=== PATIENT | female | born 1950 | race Caucasian/White ===

== ENCOUNTER 2023-09-28 07:23 | Outpatient (REF) | payer OTHER, SELFPAY ==
--- NOTE | ~2023-09-28 | XR_ITS ---
EXAMINATION: XR BOTH KNEES AP STANDING XR LEFT KNEE, 2 VIEWS XR RIGHT KNEE, 2 VIEWS CLINICAL INFORMATION: Bilateral knee pain. COMPARISON: None. TECHNIQUE: Standing AP view of both knees and lateral and sunrise views of each knee. FINDINGS: LEFT KNEE: Mild tricompartmental joint space narrowing with small marginal osteophytes. Articular cortical irregularity is evident at the patella and lateral compartments. Osseous sclerosis is present in the lateral compartment with subtle cortical remodeling. No fracture or malalignment. Small joint effusion. Bones are osteopenic. RIGHT KNEE: Tricompartmental joint space narrowing, most pronounced in the lateral compartment, associated with articular sclerosis and cortical irregularity. Tricompartmental marginal osteophytes. Moderate-size joint effusions. Bones are osteopenic. No fractures. XR/XR knee standing BI IMPRESSION: Moderate lateral compartment osteoarthritis bilaterally with more [id number] patellofemoral and mild medial compartment osteoarthritis. Bilateral joint effusions, right side greater than left.
--- NOTE | ~2023-09-28 | XR_ITS ---
EXAMINATION: XR BOTH KNEES AP STANDING XR LEFT KNEE, 2 VIEWS XR RIGHT KNEE, 2 VIEWS CLINICAL INFORMATION: Bilateral knee pain. COMPARISON: None. TECHNIQUE: Standing AP view of both knees and lateral and sunrise views of each knee. FINDINGS: LEFT KNEE: Mild tricompartmental joint space narrowing with small marginal osteophytes. Articular cortical irregularity is evident at the patella and lateral compartments. Osseous sclerosis is present in the lateral compartment with subtle cortical remodeling. No fracture or malalignment. Small joint effusion. Bones are osteopenic. RIGHT KNEE: Tricompartmental joint space narrowing, most pronounced in the lateral compartment, associated with articular sclerosis and cortical irregularity. Tricompartmental marginal osteophytes. Moderate-size joint effusions. Bones are osteopenic. No fractures. XR/XR knee RT 2V IMPRESSION: Moderate lateral compartment osteoarthritis bilaterally with more [id number] patellofemoral and mild medial compartment osteoarthritis. Bilateral joint effusions, right side greater than left.
--- NOTE | ~2023-09-28 | XR_ITS ---
EXAMINATION: XR BOTH KNEES AP STANDING XR LEFT KNEE, 2 VIEWS XR RIGHT KNEE, 2 VIEWS CLINICAL INFORMATION: Bilateral knee pain. COMPARISON: None. TECHNIQUE: Standing AP view of both knees and lateral and sunrise views of each knee. FINDINGS: LEFT KNEE: Mild tricompartmental joint space narrowing with small marginal osteophytes. Articular cortical irregularity is evident at the patella and lateral compartments. Osseous sclerosis is present in the lateral compartment with subtle cortical remodeling. No fracture or malalignment. Small joint effusion. Bones are osteopenic. RIGHT KNEE: Tricompartmental joint space narrowing, most pronounced in the lateral compartment, associated with articular sclerosis and cortical irregularity. Tricompartmental marginal osteophytes. Moderate-size joint effusions. Bones are osteopenic. No fractures. XR/XR knee LT 2V IMPRESSION: Moderate lateral compartment osteoarthritis bilaterally with more [id number] patellofemoral and mild medial compartment osteoarthritis. Bilateral joint effusions, right side greater than left.
== END 2023-09-28 07:24 | disposition home or self-care (01) ==
LOC: HO.HOSX 07:23
PROVIDERS: Visit Provider Orthopaedic Surgery
DX: M17.0 Bilateral primary osteoarthritis of knee (principal); M21.061 Valgus deformity, not elsewhere classified, right knee; M21.062 Valgus deformity, not elsewhere classified, left knee
CPT/HCPCS: 73560; 73565; 99202

== ENCOUNTER 2023-09-28 10:46 | Outpatient (AMB) | payer OTHER, SELFPAY ==
--- NOTE | 2023-09-28 10:48 | A.OFFVIS_ITS ---
Intake Vital Signs 09/28/23 10:59 Height 5 ft 4 in Weight 150 lb BMI 25.7 Intake Visit Reasons: New Pt - Bilateral Knee OA Intake Note: Lesley is a 73 year old female who presents today as a new patient with complaints of bilateral knee OA. She has previously been seen with physiatry who has administered injections, which has become less effective over time. She was referred to [facility] for Gel injections she was scheduled for Euflexxa but all of her appointments were canceled due to the shortage. Allergies adhesive Adverse Reaction (Verified 09/28/23 11:02) Rash codeine Adverse Reaction (Verified 09/28/23 11:02) Rash HPI New Pt - Bilateral Knee OA HPI Details Lesley is a 73 year old woman who presents with complaints of bilateral knee OA pain. She complains of pain with daily activity. She has a hx of injections at an outside clinic, which she says used to be helpful but they have been less effective. She was referred to [facility] for Euflexxa injections but this did not happen. [facility] Surgical History (Updated 09/28/23 @ 11:04 by Katelyn Dailey CMA) S/P removal of right ovary Hx of removal of cyst Review of Systems Const All systems reviewed & are unremarkable except as noted in HPI and below Physical Exam Vital Signs: BMI result Body Mass Index 25.7 Const General: no acute distress, alert and awake Orientation/consciousness: patient oriented x3 HEENT Head: Yes normocephalic and Yes atraumatic Eyes EOM: EOMs intact bilaterally Resp Effort & Inspection: normal respiratory effort and able to speak in complete sentences Cardio Jugular venous distension: no JVD Skin General skin exam: turgor normal Rashes: no rashes Neuro General: patient oriented x3 Extrem Other: Valugs bilateral knees TTP lateral compartment right knee 1+ valgus instability left Psych Appearance: grossly normal Affect: normal affect Attitude: cooperative Results Reviewed Results Reviewed: I personally reviewed relevant radiographs. lateral compartment OA bilaterally Assessment & Plan Assessment & Plan (1) Arthritis of both knees: Code(s): M17.0 - Bilateral primary osteoarthritis of knee Plan: Steroid injections not helpfu. Viscosupplementation Lateral unloading brace left (2) Acquired genu valgum of both knees: Code(s): M21.061 - Valgus deformity, not elsewhere classified, right knee; M21.062 - Valgus deformity, not elsewhere classified, left knee Plan Prepared for Neal Rios MD by Jesus Alberto Saavedra, emergency medical tech, on 09/28/23 at 10:53 AM, EST. Orders: Orders XR knee RT 2V 09/28/23 M25.569 - Pain in unspecified knee XR knee LT 2V 09/28/23 M25.569 - Pain in unspecified knee XR knee standing BI 09/28/23 M25.569 - Pain in unspecified knee Coding Level of Care Code New Pt Level 4 (70538) Diagnoses Arthritis of both knees M17.0 Acquired genu valgum of both knees M21.061; M21.062
[2023-09-28 10:59] VITALS: BMI 25.7
== END 2023-09-28 11:46 | disposition home or self-care (01) ==
PROVIDERS: Visit Provider Orthopaedic Surgery
DX: M17.0 Bilateral primary osteoarthritis of knee (principal); M21.061 Valgus deformity, not elsewhere classified, right knee; M21.062 Valgus deformity, not elsewhere classified, left knee
CPT/HCPCS: 99203

== ENCOUNTER 2023-10-19 09:19 | Outpatient (AMB) | payer OTHER, SELFPAY ==
--- NOTE | 2023-10-19 08:30 | A.OFFVIS_ITS ---
Intake Vital Signs 10/19/23 09:30 Height 5 ft 4 in Weight 150 lb BMI 25.7 Intake Visit Reasons: Bilateral Knee Durolane Injections Intake Note: Lesley 73 yr old female presents today for Bilateral knee Durolane injections#1 Allergies adhesive Adverse Reaction (Verified 10/19/23 09:32) Rash codeine Adverse Reaction (Verified 10/19/23 09:32) Rash HPI Bilateral Knee Durolane Injections HPI Details Lesley is a 73 year old woman with bilateral knee OA, who presents for bilateral Durolane injections. She denies any changes in her symptoms or medical history. [facility] Surgical History S/P removal of right ovary Hx of removal of cyst Social History (Updated 10/19/23 @ 09:33 by Mary Walton MA) Household Members: None Housing: Condominium Alcohol intake: current Alcohol intake frequency: a few times a week Patient Tobacco Use Status: Former Tobacco user Review of Systems Const All systems reviewed & are unremarkable except as noted in HPI and below Physical Exam Vital Signs: BMI result Body Mass Index 25.7 Const General: no acute distress, alert and awake Orientation/consciousness: patient oriented x3 HEENT Head: Yes normocephalic and Yes atraumatic Eyes EOM: EOMs intact bilaterally Resp Effort & Inspection: normal respiratory effort and able to speak in complete sentences Cardio Jugular venous distension: no JVD Skin General skin exam: turgor normal Rashes: no rashes Neuro General: patient oriented x3 Extrem Other: Valgus alignment Skin C/D/I Psych Appearance: grossly normal Affect: normal affect Attitude: cooperative Office Procedures Joint Injection/Drain Joint Injection/Drain Details: Injected Durolane. Site was prepped using aseptic technique. Patient tolerated the procedure well. Primary Site: right knee Secondary Site: left knee Coding - Large joint - Glenohumeral/Tronchanteric Bursa/Intraarticular Procedure code (CPT) selection complete Assessment & Plan Assessment & Plan (1) Acquired genu valgum of both knees: Code(s): M21.061 - Valgus deformity, not elsewhere classified, right knee; M21.062 - Valgus deformity, not elsewhere classified, left knee Plan: Durolane bilateral knees. f/u 3 mo. (2) Arthritis of both knees: Code(s): M17.0 - Bilateral primary osteoarthritis of knee Plan Prepared for Neal Rios MD by Jesus Alberto Saavedra, medical office receptionist assistant, on 10/19/23 at 9:05 AM, EST. Coding Level of Care Code Est Pt Level 2 (64783) Diagnoses Acquired genu valgum of both knees M21.061; M21.062 Arthritis of both knees M17.0 CPT Codes Coding - 87956 Large joint: 60455 - Large joint ([id number]) Coding - Joint 7: 89740 - Glenohumeral/Tronchanteric Bursa/Intraarticular ([id number])
[2023-10-19 09:30] VITALS: BMI 25.7
== END 2023-10-19 09:47 | disposition home or self-care (01) ==
PROVIDERS: Visit Provider Orthopaedic Surgery
DX: M21.061 Valgus deformity, not elsewhere classified, right knee (principal); M21.062 Valgus deformity, not elsewhere classified, left knee; M17.0 Bilateral primary osteoarthritis of knee
CPT/HCPCS: 20610

== ENCOUNTER → 2023-10-19 09:19 | Outpatient (BNVA) | payer OTHER, SELFPAY | PROVIDERS: Visit Provider Orthopaedic Surgery | DX: M17.0 Bilateral primary osteoarthritis of knee (principal); M21.061 Valgus deformity, not elsewhere classified, right knee; M21.062 Valgus deformity, not elsewhere classified, left knee | CPT/HCPCS: 20610; J7318 ==

== ENCOUNTER 2023-11-16 08:30 | Outpatient (AMB) | payer OTHER, SELFPAY ==
[2023-11-16 08:33] VITALS: BMI 25.7
--- NOTE | 2023-11-16 08:33 | A.OFFVIS_ITS ---
Intake Vital Signs 11/16/23 08:33 Height 5 ft 4 in Weight 150 lb BMI 25.7 Intake Visit Reasons: OV - Bilateral Knee OA - Increased Pain Intake Note: Lesley is a 73 year old female who presents today for a follow up of her bilateral knee OA, She received bilateral Durolane injections on 10/19/23. She presents today as she is having continued worsening pain, the injection has not helped, if anything it has increased her pain and swelling. Allergies adhesive Adverse Reaction (Verified 11/16/23 08:38) Rash codeine Adverse Reaction (Verified 11/16/23 08:38) Rash HPI OV - Bilateral Knee OA - Increased Pain HPI0 Details s/p gel injections with no relief. She describes severe pain. She states the gel made them worse. She denies redness or fever or chills. She does NOT want a knee replacement. She doesn't understand how or why the gel didn't make her better. [facility] Surgical History S/P removal of right ovary Hx of removal of cyst Social History Household Members: None Housing: Condominium Alcohol intake: current Alcohol intake frequency: a few times a week Patient Tobacco Use Status: Former Tobacco user Physical Exam Vital Signs: BMI result Body Mass Index 25.7 Const General: cooperative, healthy appearing, no acute distress, well developed and alert HEENT Head: Yes normal to inspection, Yes normocephalic and Yes atraumatic Mouth: moist mucous membranes Eyes General: appearance normal, both eyes and all related structures EOM: EOMs intact bilaterally Chest Other: no audible wheezing. Resp Other: No audible wheezing Effort & Inspection: normal respiratory effort Back/Spine/Pelvis Cervical Spine: normal cervical lordosis Skin General skin exam: no rashes or lesions noted Neuro General: no focal motor deficits Extrem Other: There is mild effusion bilaterally Valgus alignment bialerally right > left There is 1+ valgus instability on the right and lateral compartment ttp Psych Appearance: grossly normal and well kempt Mental Status: mental status grossly normal Speech and movement: Normal speech and movement present Affect: normal affect Attitude: cooperative Assessment & Plan Assessment & Plan (1) Acquired genu valgum of both knees: Code(s): M21.061 - Valgus deformity, not elsewhere classified, right knee; M21.062 - Valgus deformity, not elsewhere classified, left knee Plan: This is a 73 yo F with right knee, valgus pattern, OA. I explained that steroid and gel have variable responses and incomplete symptom resolution is common. I offered PRP injections, bracing, surgery and finally we agreed on a referral to pain management. She should continue NSAIDs and a referral was made to pain management. (2) Arthritis of both knees: Code(s): M17.0 - Bilateral primary osteoarthritis of knee Plan: This is a 73 yo F with right knee, valgus pattern, OA. I explained that steroid and gel have variable responses and incomplete symptom resolution is common. I offered PRP injections, bracing, surgery and finally we agreed on a referral to pain management. She should continue NSAIDs and a referral was made to pain management. Orders: Referrals Pain Management Referral M17.0 - Bilateral primary osteoarthritis of knee, M21.061 - Valgus deformity, not elsewhere classified, right knee, M21.062 - Valgus deformity, not elsewhere classified, left knee Coding Level of Care Code Est Pt Level 4 (30396) Diagnoses Acquired genu valgum of both knees M21.061; M21.062 Arthritis of both knees M17.0
== END 2023-11-16 09:13 | disposition home or self-care (01) ==
PROVIDERS: Visit Provider Orthopaedic Surgery
DX: M21.061 Valgus deformity, not elsewhere classified, right knee (principal); M21.062 Valgus deformity, not elsewhere classified, left knee; M17.0 Bilateral primary osteoarthritis of knee
CPT/HCPCS: 99214

== ENCOUNTER → 2023-11-16 08:30 | Outpatient (BNVA) | payer OTHER, SELFPAY | PROVIDERS: Visit Provider Orthopaedic Surgery | DX: M21.061 Valgus deformity, not elsewhere classified, right knee (principal); M21.062 Valgus deformity, not elsewhere classified, left knee; M17.0 Bilateral primary osteoarthritis of knee | CPT/HCPCS: 99212 ==

== ENCOUNTER 2023-12-14 09:25 | Outpatient (AMB) | payer OTHER, SELFPAY ==
--- NOTE | 2023-12-14 09:48 | MHC.OFFVIS ---
Vital Signs 12/14/23 09:49 Height 5 ft 4 in Weight 159 lb BMI 27.3 BP 102/59 L Blood Pressure Location Lt brachial Position Sitting Respiration 14 Pulse 70 Pulse Source Pulse Oximeter Pulse Oximetry (%) 100 Oxygen Delivery Method Room Air Intake Visit Reasons: deborah knee pain Allergies adhesive Adverse Reaction (Verified 12/14/23 09:50) Rash codeine Adverse Reaction (Verified 12/14/23 09:50) Rash Medication List - Last Reconciled 12/14/23 by Swapna Ortiz LPN carisoprodol (Soma) 250 mg PO BEDTIME indomethacin 25 mg PO BID HPI HPI deborah knee pain: Details: 73-year-old female who presents today to the office for an evaluation of bilateral knee pain. She reports bilateral knee pain for the past three years. She has a history of knee OA. Her pain is rated as 8-9/10 in intensity in bilateral knees. Her left knee is worse than the right side. Evenings tend to be a little bit better when they are rated at 3/10 in intensity. Weather changes make the pain worse. She received bilateral Durolane injections on 10/19/23 with no relief but overall worsened her pain. She has been following up with physiatry every three months for a cortisone injection in her knees. Her last injection was on 12/02/2023. She is scheduled for her next cortisone injection on 03/01/2024. She was scheduled for Euflexxa, but all of her appointments were canceled due to the shortage. She takes indomethacin 50 milligrams three times a day and Soma 350 milligrams twice daily. She has not tried gabapentin or pregabalin. [facility] Surgical History S/P removal of right ovary Hx of removal of cyst Social History Household Members: None Housing: Condominium Alcohol intake: current Alcohol intake frequency: a few times a week Patient Tobacco Use Status: Former Tobacco user Review of Systems Const All systems reviewed & are unremarkable except as noted in HPI and below Physical Exam Vital Signs: Last Vital Signs Pulse 70 12/14/23 09:49 Resp 14 12/14/23 09:49 BP 102/59 L 12/14/23 09:49 Pulse Ox 100 12/14/23 09:49 Oxygen Delivery Method Room Air 12/14/23 09:49 BMI result Body Mass Index 27.3 General: Appears afebrile. Alert and oriented. Mood and affect appropriate. Follows and participates in conversation appropriately. Respiratory effort is unlabored. Able to transition from sit to stand unassisted. Ambulates with bilaterally normal heel strike and toe off. Results Reviewed Results Reviewed: 09/28/23: XR BOTH KNEES AP STANDING. XR LEFT KNEE, 2 VIEWS. XR RIGHT KNEE, 2 VIEWS FINDINGS: LEFT KNEE: Mild tricompartmental joint space narrowing with small marginal osteophytes. Articular cortical irregularity is evident at the patella and lateral compartments. Osseous sclerosis is present in the lateral compartment with subtle cortical remodeling. No fracture or malalignment. Small joint effusion. Bones are osteopenic. RIGHT KNEE: Tricompartmental joint space narrowing, most pronounced in the lateral compartment, associated with articular sclerosis and cortical irregularity. Tricompartmental marginal osteophytes. Moderate-size joint effusions. Bones are osteopenic. No fractures. IMPRESSION: Moderate lateral compartment osteoarthritis bilaterally with more [id number] patellofemoral and mild medial compartment osteoarthritis. Bilateral joint effusions, right side greater than left Assessment & Plan Assessment & Plan (1) Chronic pain of both knees: Code(s): M25.561 - Pain in right knee; M25.562 - Pain in left knee; G89.29 - Other chronic pain Category: Medical Plan Discussed temporary nerve stimulators vs. permanent nerve stimulators as a possible treatment option. We will schedule her for a left knee temporary saphenous nerve stimulator placement for intractable knee pain, not responsive to corticosteroid injections, physical therapy, or hyaluronic acid injections. We will schedule the right knee two weeks later. I prescribed gabapentin 300 mg QHS for interval pain management. If she notices any side effects, she can reach out to us or discontinue the medication. Discussed the risks and benefits of the procedure with the patient in detail. All questions were answered. The patient is on board with the plan. Justification for interventional therapy: ? Patient with average pain > 6/10 ? The patient has exhausted corticosteroid injections, physical therapy, and hyaluronic acid injections. ? The patient has a good understanding of their pain condition and has appropriate mental and social support. Scribed for Dr. Mcclure by Shashank Atkins, biomedical scientist, on 12/14/2023. I, Dr. Mcclure, have personally reviewed and agree with the information entered by the scribe. Medications: New gabapentin 300 mg PO BEDTIME 30 caps 0RF Coding Level of Care Code New Pt Level 4 (23249) Diagnoses Chronic pain of both knees M25.561; M25.562; G89.29
[2023-12-14 09:49] VITALS: BP 102/59; PULSE 70; RESP 14; O2SAT 100; BMI 27.3
== END 2023-12-14 10:23 | disposition home or self-care (01) ==
PROVIDERS: Visit Provider Internal Medicine
DX: M25.561 Pain in right knee (principal); M25.562 Pain in left knee; G89.29 Other chronic pain
CPT/HCPCS: 99204

== ENCOUNTER → 2023-12-14 09:25 | Outpatient (BNVA) | payer OTHER, SELFPAY | PROVIDERS: Visit Provider Internal Medicine | DX: M25.561 Pain in right knee (principal); M25.562 Pain in left knee; G89.29 Other chronic pain | CPT/HCPCS: 99202 ==

== ENCOUNTER 2024-01-14 06:13 | Outpatient (REF) | payer OTHER, SELFPAY | END 2024-01-14 06:14 | disposition home or self-care (01) | LOC: CF 06:13 | PROVIDERS: Visit Provider Internal Medicine | DX: M17.0 Bilateral primary osteoarthritis of knee (principal); G89.29 Other chronic pain | CPT/HCPCS: 64555; C1778 ==

== ENCOUNTER 2024-01-14 09:57 | Outpatient (AMB) | payer OTHER, SELFPAY ==
--- NOTE | 2024-01-14 09:33 | A.OFFVIS_ITS ---
Vital Signs 01/14/24 10:54 01/14/24 10:55 Height 5 ft 4 in Weight 159 lb BMI 27.3 BP 112/70 110/66 Blood Pressure Location Lt brachial Lt brachial Position Sitting Sitting Respiration 16 18 Pulse 90 81 Pulse Source Pulse Oximeter Pulse Oximeter Pulse Oximetry (%) 99 97 Oxygen Delivery Method Room Air Room Air Comment Pre-Op Post-Op Intake Visit Reasons: Left SN Sprint Allergies adhesive Adverse Reaction (Verified 12/14/23 09:50) Rash codeine Adverse Reaction (Verified 12/14/23 09:50) Rash HPI HPI Left SN Sprint: Details: Patient presents for scheduled procedure. Denies any recent cough, cold, infection, fever or other significant changes in medical history since last office visit. [facility] Surgical History S/P removal of right ovary Hx of removal of cyst Social History Household Members: None Housing: Condominium Alcohol intake: current Alcohol intake frequency: a few times a week Patient Tobacco Use Status: Former Tobacco user Physical Exam Vital Signs: Last Vital Signs Pulse 81 01/14/24 10:55 Resp 18 01/14/24 10:55 BP 110/66 01/14/24 10:55 Pulse Ox 97 01/14/24 10:55 Oxygen Delivery Method Room Air 01/14/24 10:55 BMI result Body Mass Index 27.3 Office Procedures Details: Peripheral Nerve Stimulation Temporary Lead Placement, Ultrasound-Guided, Saphenous Nerve, Left ? After the risks, benefits and alternatives were discussed with the patient and informed consentwas obtained, patient was placed in the supine position and padded to foster comfort. Appropriate skin and bony landmarks were identified, and pertinent vascular structures were located. The skin overlying the needle entry site was prepped and draped in sterile fashion. Ultrasound was used to identify the femoral artery, the femoral vein and the saphenous nerve. After identifying and marking the intended target along the course of the saphenous nerve, the skin around the planned entry point and the subcutaneous tissues were injected with local anesthetic. An introducer needle and stimulating probe were assembled, inserted and advanced along the intended course of the saphenous nerve, taking care to maintain the proper depth of insertion as the introducer was advanced under ultrasound guidance. The introducer needle was delivered to a location in proximity to the nerve taking care not to puncture the femoral artery or the vein. Multiple stimulation parameters were used to deliver stimulation to the saphenous nerve in concert with stimulating at multiple positions around the nerve. Nerve target acquisition was confirmed noting generation of sensory and mild motor effects (paresthesia, muscle tension, etc) in the medial knee, leg and ankle; corresponding to the distribution of the saphenous nerve. Various electrical parameter combinations were tested, and the lead location was adjusted (physically relocated under ultrasound guidance) until the patient indicated medial knee paresthesia and tension overlapping the distribution of the patient?s typical region of pain. The stimulating probe was removed from the introducer and a percutaneous lead was guided through the needle and delivered to a location in similar proximity t o the nerve. Final location was verified with electrical stimulation and documented. The introducer needle was removed, and the exposed end of the percutaneous lead was attached to an external stimulator unit. Various electrical parameter combinations were again tested until the patient indicated paresthesia and muscle tension overlapping the distribution of the patient?s typical region of pain. After confirming that lead impedance was in the normal range, the external unit was detached, the needle was removed, and the lead was anchored at the skin. The lead was threaded into the connector block and electrical continuity and desired patient response was confirmed. The connector block was attached to the external stimulator unit. The site was covered with a sterile occlusive dressing. A f inal ultrasound image was taken to document final placement. The patient was observed for stability of vital signs and comfort. Sprint PNS Device: Sprint PNS Device [id number] Percutaneous Peripheral Neuroelectrode Procedure: 17833 - Percutaneous Peripheral Neuroelectrode Procedure code (CPT) selection complete Office Meds lidocaine (PF) 50 mg/5 mL (1 %) injection syringe Performing Provider: Camille Singh APRN, LINOTYPE WORKER Performing Location: [facility] Administered by: Swapna Ortiz LPN on 01/14/24 10:33 Dose Route Admin Location Dispensed Lot Number Expiration Date ND Mock Up Assembler 5 mL subcut 5 mL Assessment & Plan Assessment & Plan (1) Chronic pain of both knees: Code(s): M25.561 - Pain in right knee; M25.562 - Pain in left knee; G89.29 - Other chronic pain Category: Medical (2) Arthritis of both knees: Code(s): M17.0 - Bilateral primary osteoarthritis of knee Category: Medical Plan Patient is status post temporary left saphenous nerve stimulator placement. Patient tolerated procedure well and was discharged home in stable condition with discharge instructions. All questions were answered. We will follow-up via telephone or in clinic to assess response to therapy. A follow-up appointment was made during today's visit. Orders: Orders FL guidance in treatment room Today G89.29 - Other chronic pain, M25.561 - Pain in right knee, M25.562 - Pain in left knee AMB Sprint PNS Today G89.29 - Other chronic pain, M25.561 - Pain in right knee, M25.562 - Pain in left knee Coding Level of Care Code Procedure Only Diagnoses Chronic pain of both knees M25.561; M25.562; G89.29 Arthritis of both knees M17.0 CPT Codes Sprint PNS - Sprint PNS Device: Sprint PNS Device ([id number]) Sprint PNS - SPRINT: 80762 - Percutaneous Peripheral Neuroelectrode ([id number]) Implantable Device Implantable Device Implantable Devices Qty Mock Up Assembler Implant Date Expiration Date Analgesic PENS system 1 [employer] 01/14/24 03/20/25
[2024-01-14 10:54] VITALS: BP 112/70; PULSE 90; RESP 16; O2SAT 99; BMI 27.3
[2024-01-14 10:55] VITALS: BP 110/66; PULSE 81; RESP 18; O2SAT 97
== END 2024-01-14 10:51 | disposition home or self-care (01) ==
LOC: HO.PMCPRC 09:57
PROVIDERS: Visit Provider Internal Medicine
DX: G89.29 Other chronic pain (principal); M25.561 Pain in right knee; M25.562 Pain in left knee; M17.0 Bilateral primary osteoarthritis of knee
CPT/HCPCS: 64555

== ENCOUNTER 2024-01-22 09:23 | Outpatient (AMB) | payer OTHER, SELFPAY ==
--- NOTE | 2024-01-22 09:26 | MHC.OFFVIS ---
Vital Signs 01/22/24 09:27 Height 5 ft 4 in Weight 155 lb BMI 26.6 BP 133/63 Blood Pressure Location Lt brachial Position Sitting Respiration 14 Pulse 83 Pulse Source Pulse Oximeter Pulse Oximetry (%) 99 Oxygen Delivery Method Room Air Intake Visit Reasons: s/p Left SN Sprint Allergies adhesive Adverse Reaction (Verified 01/22/24 09:29) Rash codeine Adverse Reaction (Verified 01/22/24 09:29) Rash Medication List - Last Reconciled 01/22/24 by Swapna Ortiz LPN carisoprodol (Soma) 250 mg PO BEDTIME gabapentin 300 mg PO BEDTIME indomethacin 25 mg PO BID HPI HPI s/p Left SN Sprint: Details: 73-year-old female who presents today to the office for a status post left SN sprint. The patient reports no relief yet following the procedure. She is feeling adequate pressure in the distribution of the saphenous nerve. She states that her device kept falling down at home. She reached out to [employer], who recommended trying Aj bandages to keep the device in place. She was initially using the device at 36?37 post-procedure and had no anesthesia sensations. Currently, she is using the device at 58?60 and endorses mild paresthesia sensations from the device. Her pain level is the same as before. She has been managing her diet to lose some weight. She includes vegetables and fruits in her diet. She had some concerns about the stimulation device, which were cleared today.?She is interested in knee aspiration to remove fluid accumulated around the knee. She changed her dressing yesterday at home. Past procedures 01/14/24: Peripheral Nerve Stimulation Temporary Lead Placement, Ultrasound-Guided, Saphenous Nerve, Left: No relief yet [facility] Surgical History S/P removal of right ovary Hx of removal of cyst Social History Household Members: None Housing: Condominium Alcohol intake: current Alcohol intake frequency: a few times a week Patient Tobacco Use Status: Former Tobacco user Review of Systems Const All systems reviewed & are unremarkable except as noted in HPI and below Physical Exam Vital Signs: Last Vital Signs Pulse 83 01/22/24 09:27 Resp 14 01/22/24 09:27 BP 133/63 01/22/24 09:27 Pulse Ox 99 01/22/24 09:27 Oxygen Delivery Method Room Air 01/22/24 09:27 BMI result Body Mass Index 26.6 General: Appears afebrile. Alert and oriented. Mood and affect appropriate. Follows and participates in conversation appropriately. Respiratory effort is unlabored. Able to transition from sit to stand unassisted. Ambulates with bilaterally normal heel strike and toe off. Lead insertion site is clean dry and intact. Results Reviewed Results Reviewed: No imaging is available for review. Assessment & Plan Assessment & Plan (1) Chronic pain of both knees: Code(s): M25.561 - Pain in right knee; M25.562 - Pain in left knee; G89.29 - Other chronic pain Category: Medical Plan The patient will return to the clinic for knee aspiration to further help in combination with the nerve stimulation. I counseled her about optimal settings and how to secure the device in place and answered questions. She will continue the therapy for the prescribed period. She is currently scheduled for the right sided placement two weeks from now. Scribed for Dr. Mcclure by Shashank Atkins, nuclear medical technologist, on 01/22/2024. I, Dr. Mcclure, have personally reviewed and agree with the information entered by the scribe. Coding Level of Care Code Est Pt Level 3 (91216) Diagnoses Chronic pain of both knees M25.561; M25.562; G89.29
[2024-01-22 09:27] VITALS: BP 133/63; PULSE 83; RESP 14; O2SAT 99; BMI 26.6
== END 2024-01-22 10:01 | disposition home or self-care (01) ==
PROVIDERS: Visit Provider Internal Medicine
DX: M25.561 Pain in right knee (principal); M25.562 Pain in left knee; G89.29 Other chronic pain
CPT/HCPCS: 99024

== ENCOUNTER → 2024-01-22 09:23 | Outpatient (BNVA) | payer OTHER, SELFPAY | PROVIDERS: Visit Provider Internal Medicine | DX: M25.561 Pain in right knee (principal); M25.562 Pain in left knee; G89.29 Other chronic pain | CPT/HCPCS: 99212 ==

== ENCOUNTER 2024-01-28 06:10 | Outpatient (REF) | payer OTHER, SELFPAY | END 2024-01-28 06:11 | disposition home or self-care (01) | LOC: CF 06:10 | PROVIDERS: Visit Provider Internal Medicine | DX: M17.0 Bilateral primary osteoarthritis of knee (principal) | CPT/HCPCS: 64555; C1778 ==

== ENCOUNTER 2024-01-28 09:34 | Outpatient (AMB) | payer OTHER, SELFPAY ==
[2024-01-28 09:48] VITALS: BP 122/70; PULSE 85; RESP 16; O2SAT 98; BMI 26.6
--- NOTE | 2024-01-28 09:48 | MHC.OFFVIS ---
Vital Signs 01/28/24 09:48 01/28/24 11:08 Height 5 ft 4 in Weight 155 lb BMI 26.6 BP 122/70 102/64 Blood Pressure Location Lt brachial Lt brachial Position Sitting Sitting Respiration 16 18 Pulse 85 76 Pulse Source Pulse Oximeter Pulse Oximeter Pulse Oximetry (%) 98 96 Oxygen Delivery Method Room Air Room Air Comment Pre-Op Post-Op Intake Visit Reasons: Right SN Sprint Allergies adhesive Adverse Reaction (Verified 01/22/24 09:29) Rash codeine Adverse Reaction (Verified 01/22/24 09:29) Rash HPI HPI Right SN Sprint: Details: Patient presents for scheduled procedure. Denies any recent cough, cold, infection, fever or other significant changes in medical history since last office visit. [facility] Surgical History S/P removal of right ovary Hx of removal of cyst Social History Household Members: None Housing: Condominium Alcohol intake: current Alcohol intake frequency: a few times a week Patient Tobacco Use Status: Former Tobacco user Physical Exam Vital Signs: Last Vital Signs Pulse 85 01/28/24 09:48 Resp 16 01/28/24 09:48 BP 122/70 01/28/24 09:48 Pulse Ox 98 01/28/24 09:48 Oxygen Delivery Method Room Air 01/28/24 09:48 BMI result Body Mass Index 26.6 Office Procedures Details: Peripheral Nerve Stimulation Temporary Lead Placement, Ultrasound-Guided, Saphenous Nerve, Right ? After the risks, benefits and alternatives were discussed with the patient and informed consent was obtained, patient was placed in the supine position and padded to foster comfort. Appropriate skin and bony landmarks were identified, and pertinent vascular structures were located. The skin overlying the needle entry site was prepped and draped in sterile fashion. Ultrasound was used to identify the femoral artery, the femoral vein and the saphenous nerve. After identifying and marking the intended target along the course of the saphenous nerve, the skin around the planned entry point and the subcutaneous tissues were injected with local anesthetic. An introducer needle and stimulating probe were assembled, inserted and advanced along the intended course of the saphenous nerve, taking care to maintain the proper depth of insertion as the introducer was advanced under ultrasound guidance. The introducer needle was delivered to a location in proximity to the nerve taking care not to puncture the femoral artery or the vein. Multiple stimulation parameters were used to deliver stimulation to the saphenous nerve in concert with stimulating at multiple positions around the nerve. Nerve target acquisition was confirmed noting generation of sensory and mild motor effects (paresthesia, muscle tension, etc) in the medial knee, leg and ankle; corresponding to the distribution of the saphenous nerve. Various electrical parameter combinations were tested, and the lead location was adjusted (physically relocated under ultrasound guidance) until the patient indicated medial knee paresthesia and tension overlapping the distribution of the patient?s typical region of pain. The stimulating probe was removed from the introducer and a percutaneous lead was guided through the needle and delivered to a location in similar proximity to the nerve. Final location was verified with electrical stimulation and documented. The introducer needle was removed, and the exposed end of the percutaneous lead was attached to an external stimulator unit. Various electrical parameter combinations were again tested until the patient indicated paresthesia and muscle tension overlapping the distribution of the patient?s typical region of pain. After confirming that lead impedance was in the normal range, the external unit was detached, the needle was removed, and the lead was anchored at the skin. The lead was threaded into the connector block and electrical continuity and desired patient response was confirmed. The connector block was attached to the external stimulator unit. The site was covered with a sterile occlusive dressing. A final ultrasound image was taken to document final placement. The patient was observed for stability of vital signs and comfort. Sprint PNS Device: Sprint PNS Device [id number] Percutaneous Peripheral Neuroelectrode Procedure: 13020 - Percutaneous Peripheral Neuroelectrode Procedure code (CPT) selection complete Office Meds lidocaine (PF) 50 mg/5 mL (1 %) injection syringe Performing Provider: Camille Singh APRN, DIRECTOR NETWORK DEVELOPMENT Performing Location: [facility] Administered by: Swapna Ortiz LPN on 01/28/24 10:31 Dose Route Admin Location Dispensed Lot Number Expiration Date ND [employer] Supervisor Maintenance 5 mL subcut 5 mL Assessment & Plan Assessment & Plan (1) Chronic pain of both knees: Code(s): M25.561 - Pain in right knee; M25.562 - Pain in left knee; G89.29 - Other chronic pain Category: Medical (2) Arthritis of both knees: Code(s): M17.0 - Bilateral primary osteoarthritis of knee Category: Medical Plan Patient is status post temporary right saphenous nerve stimulator placement. Patient tolerated procedure well and was discharged home in stable condition with discharge instructions. All questions were answered. We will follow-up via telephone or in clinic to assess response to therapy. A follow-up appointment was made during today's visit. Orders: Orders AMB Sprint PNS Today Camille Singh APRN, DIRECTOR NETWORK DEVELOPMENT G89.29 - Other chronic pain, M25.561 - Pain in right knee, M25.562 - Pain in left knee US guide needle placement Today Chester Mcclure MD G89.29 - Other chronic pain, M25.561 - Pain in right knee, M25.562 - Pain in left knee Coding Level of Care Code Procedure Only Diagnoses Chronic pain of both knees M25.561; M25.562; G89.29 Arthritis of both knees M17.0 CPT Codes Sprint PNS - Sprint PNS Device: Sprint PNS Device ([id number]) Sprint PNS - SPRINT: 18270 - Percutaneous Peripheral Neuroelectrode ([id number]) Implantable Device Implantable Device Implantable Devices Qty Steam Fitter Supervisor Maintenance Implant Date Expiration Date Analgesic PENS system 1 [employer] 01/14/24 03/20/25 Analgesic PENS system 1 [employer] 01/28/24 12/30/24
[2024-01-28 11:08] VITALS: BP 102/64; PULSE 76; RESP 18; O2SAT 96
== END 2024-01-28 11:03 | disposition home or self-care (01) ==
LOC: HO.PMCPRC 09:34
PROVIDERS: Visit Provider Internal Medicine
DX: M25.561 Pain in right knee (principal); M25.562 Pain in left knee; G89.29 Other chronic pain; M17.0 Bilateral primary osteoarthritis of knee
CPT/HCPCS: 64555

== ENCOUNTER 2024-02-03 08:54 | Outpatient (AMB) | payer OTHER, SELFPAY ==
[2024-02-03 09:24] VITALS: BP 114/58; PULSE 65; RESP 14; O2SAT 100; BMI 26.6
--- NOTE | 2024-02-03 09:24 | MHC.OFFVIS ---
Vital Signs 02/03/24 09:24 Height 5 ft 4 in Weight 155 lb BMI 26.6 BP 114/58 L Blood Pressure Location Lt brachial Position Sitting Respiration 14 Pulse 65 Pulse Source Pulse Oximeter Pulse Oximetry (%) 100 Oxygen Delivery Method Room Air Intake Visit Reasons: KNEE ASPIRATION Allergies adhesive Adverse Reaction (Verified 02/03/24 09:27) Rash codeine Adverse Reaction (Verified 02/03/24 09:27) Rash Medication List - Last Reconciled 02/03/24 by Swapna Ortiz LPN carisoprodol (Soma) 250 mg PO BEDTIME gabapentin 300 mg PO BEDTIME indomethacin 25 mg PO BID HPI HPI KNEE ASPIRATION: Details: 73-year-old female who presents to the office for knee aspiration. Denies any recent cough, cold, infection, fever or other significant changes in medical history since last office visit. She complains of having pain in the knee. She states she has woke up this morning around 3:00 with a lot of pain. She has been wearing a battery pack and the only sensation she is feeling is beneath the battery pack with electric like shocks. She denies any radiation up or down the leg. She reports if she flexes her knee in a certain way, she can feel the tingling sensation. Past Procedures: 01/28/24: Peripheral Nerve Stimulation Temporary Lead Placement, Ultrasound-Guided, Saphenous Nerve, Right: No relief yet 01/14/24: Peripheral Nerve Stimulation Temporary Lead Placement, Ultrasound-Guided, Saphenous Nerve, Left: No relief yet PFSH Surgical History S/P removal of right ovary Hx of removal of cyst Social History Household Members: None Housing: Condominium Alcohol intake: current Alcohol intake frequency: a few times a week Patient Tobacco Use Status: Former Tobacco user Review of Systems Const All systems reviewed & are unremarkable except as noted in HPI and below Physical Exam Vital Signs: Last Vital Signs Pulse 65 02/03/24 09:24 Resp 14 02/03/24 09:24 BP 114/58 L 02/03/24 09:24 Pulse Ox 100 02/03/24 09:24 Oxygen Delivery Method Room Air 02/03/24 09:24 BMI result Body Mass Index 26.6 General: Appears afebrile. Alert and oriented. Mood and affect appropriate. Follows and participates in conversation appropriately. Respiratory effort is unlabored. Able to transition from sit to stand unassisted. Knee: I did the left knee aspiration, right knee ____ took out 50ML of clear synovial fluid and on the left side Office Procedures Joint Inj/Aspir; Non-Pain Clin Joint Injection/Drain Prep: site was prepped using sterile technique and injection warnings given Approach Used: anterolateral (Under ultrasound guidance) Procedure: The patient tolerated the procedure well and there was some relief with the local anesthesia Shoulders, Hips, Knees, Details: Bilateral knee aspiration and corticosteroid injection, ultrasound-guided After obtaining written consent, pre-procedure blood pressure and heart rate were stable and recorded in the nursing record. The patient was placed supine on the table. The target area was widely prepped with chloraprep, allowed to dry. Using ultrasound, the appropriate landmarks were identified. The skin overlying the target was anesthetized with 2% lidocaine. An 18 gauge 1.5 in needle was advanced under sonographic guidance to the suprapatellar bursa. 50 mL of clear synovial fluid was aspirated on the left side. The same procedure was then repeated on the right side and 30 mL of clear synovial fluid was aspirated. Following aspiration, Kenalog 20 mg mixed with ropivacaine 0.5% was injected on each side into the suprapatellar bursa. The needles were removed, skin cleansed and a sterile bandage was applied. The patient tolerated the procedure well and no complications were encountered. Following the procedure the patient's vital signs and knee strength were stable. The patient was discharged home in good condition with post-procedural instructions. Time Out: Immediately prior to the procedure, the following was verbally confirmed that there is a signed consent form and that the correct patient, planned procedure, site and side are consistent with documentation and that necessary equipment and/or blood products are available prior to the start of the case. Complications: none EBL: <1 cc Knee Large Joint Injection 99238: Bilateral Knee Coding Procedure code (CPT) selection complete Results Reviewed Results Reviewed: 09/28/23: XR BOTH KNEES AP STANDING XR LEFT KNEE, 2 VIEWS XR RIGHT KNEE, 2 VIEWS FINDINGS: LEFT KNEE: Mild tricompartmental joint space narrowing with small marginal osteophytes. Articular cortical irregularity is evident at the patella and lateral compartments. Osseous sclerosis is present in the lateral compartment with subtle cortical remodeling. No fracture or malalignment. Small joint effusion. Bones are osteopenic. RIGHT KNEE: Tricompartmental joint space narrowing, most pronounced in the lateral compartment, associated with articular sclerosis and cortical irregularity. Tricompartmental marginal osteophytes. Moderate-size joint effusions. Bones are osteopenic. No fractures. IMPRESSION: Moderate lateral compartment osteoarthritis bilaterally with more [id number] patellofemoral and mild medial compartment osteoarthritis. Bilateral joint effusions, right side greater than left. Assessment & Plan Assessment & Plan (1) Chronic pain of both knees: Code(s): M25.561 - Pain in right knee; M25.562 - Pain in left knee; G89.29 - Other chronic pain Category: Medical (2) Arthritis of both knees: Code(s): M17.0 - Bilateral primary osteoarthritis of knee Category: Medical Plan Patient is status post bilateral knee aspiration and corticosteroid injection. Patient tolerated procedure well and was discharged home in stable condition with discharge instructions. All questions were answered. We will follow up in 7 weeks for PNS lead removal after completing the prescribed course of therapy. Scribed for Dr. Mcclure by Bambi Lopez, durable medical equipment technician, on 02/03/2024. I, Dr. Mcclure, have personally reviewed and agree with the information entered by the scribe. Coding Level of Care Code Est Pt Level 4 (83137) Diagnoses Chronic pain of both knees M25.561; M25.562; G89.29 Arthritis of both knees M17.0 CPT Codes Shoulders, Hips, Knees, - Knee Large Joint Injection : Bilateral Knee ([id number])
== END 2024-02-03 10:00 | disposition home or self-care (01) ==
PROVIDERS: Visit Provider Internal Medicine
DX: M25.561 Pain in right knee (principal); M25.562 Pain in left knee; G89.29 Other chronic pain; M17.0 Bilateral primary osteoarthritis of knee
CPT/HCPCS: 20611

== ENCOUNTER → 2024-02-03 08:54 | Outpatient (BNVA) | payer OTHER, SELFPAY | PROVIDERS: Visit Provider Internal Medicine | DX: M17.0 Bilateral primary osteoarthritis of knee (principal); M25.561 Pain in right knee; M25.562 Pain in left knee; G89.29 Other chronic pain | CPT/HCPCS: 20611; J2795; J3301 ==

== ENCOUNTER 2024-02-15 08:25 | Outpatient (AMB) | payer OTHER, SELFPAY ==
--- NOTE | 2024-02-15 08:33 | MHC.OFFVIS ---
Vital Signs 02/15/24 08:36 Height 5 ft 4 in BP 110/82 Blood Pressure Location Lt brachial Position Sitting Respiration 14 Pulse 79 Pulse Source Pulse Oximeter Pulse Oximetry (%) 98 Oxygen Delivery Method Room Air Intake Visit Reasons: deborah theraputic knee injections Allergies adhesive Adverse Reaction (Verified 02/15/24 08:36) Rash codeine Adverse Reaction (Verified 02/15/24 08:36) Rash Medication List - Last Reconciled 02/15/24 by Swapna Ortiz LPN carisoprodol (Soma) 250 mg PO BEDTIME gabapentin 300 mg PO BEDTIME indomethacin 25 mg PO BID HPI HPI deborah theraputic knee injections: Details: 73-year-old female who presents today to the office for a bilateral therapeutic knee injection. Denies any recent cough, cold, infection, fever or other significant changes in medical history since last office visit.? Past Procedures: 02/03/2024: Bilateral knee aspiration and corticosteroid injection, ultrasound-guided: % relief 01/28/24: Peripheral Nerve Stimulation Temporary Lead Placement, Ultrasound-Guided, Saphenous Nerve, Right: No relief yet 01/14/24: Peripheral Nerve Stimulation Temporary Lead Placement, Ultrasound-Guided, Saphenous Nerve, Left: No relief yet PFSH Surgical History S/P removal of right ovary Hx of removal of cyst Social History [facility] Members: [facility] Alcohol intake: current Alcohol intake frequency: a few times a week Patient Tobacco Use Status: Former Tobacco user Review of Systems Const All systems reviewed & are unremarkable except as noted in HPI and below Physical Exam Vital Signs: Last Vital Signs Pulse 79 02/15/24 08:36 Resp 14 02/15/24 08:36 BP 110/82 02/15/24 08:36 Pulse Ox 98 02/15/24 08:36 Oxygen Delivery Method Room Air 02/15/24 08:36 General: Appears afebrile. Alert and oriented. Mood and affect appropriate. Follows and participates in conversation appropriately. Respiratory effort is unlabored. Able to transition from sit to stand unassisted. Ambulates with bilaterally normal heel strike and toe off. Office Procedures Joint Injection/Drain Joint Injection/Drain Details: Bilateral knee steroid injections, ultrasound guided Primary Site: right knee Secondary Site: left knee Prep: site was prepped using aseptic technique and site was prepped using sterile technique Injected: Kenalog (30 ml on both sides), with 3 mL of (ropivacaine 0.25 on both sides) and in the joint (bilateral) Approach Used: anteromedial Procedure: The patient tolerated the procedure well Coding Details: An ultrasound image of the injection was taken and stored in the permanent record. 59842 - Large joint (bilateral, US guided) Procedure code (CPT) selection complete Results Reviewed Results Reviewed: No imaging is available for review. Assessment & Plan Assessment & Plan (1) Chronic pain of both knees: Code(s): M25.561 - Pain in right knee; M25.562 - Pain in left knee; G89.29 - Other chronic pain Category: Medical Plan Patient is status post bilateral therapeutic knee injection. Patient tolerated procedure well and was discharged home in stable condition with discharge instructions.? All questions were answered. Follow up as previously scheduled for left PNS lead removal followed by the right side. We will consider further interventions after the complete PNS trial is over. Scribed for Dr. Mcclure by Shashank Atkins, medical staff services coordinator, on 02/15/2024. I, Dr. Mcclure, have personally reviewed and agree with the information entered by the scribe. Coding Level of Care Code Procedure Only Diagnoses Chronic pain of both knees M25.561; M25.562; G89.29 CPT Codes Coding - 35740 Large joint: 91358 - Large joint ([id number])
[2024-02-15 08:36] VITALS: BP 110/82; PULSE 79; RESP 14; O2SAT 98
== END 2024-02-15 08:54 | disposition home or self-care (01) ==
LOC: HO.PMC 08:25
PROVIDERS: Visit Provider Internal Medicine
DX: M25.561 Pain in right knee (principal); M25.562 Pain in left knee; G89.29 Other chronic pain
CPT/HCPCS: 20611

== ENCOUNTER → 2024-02-15 08:25 | Outpatient (BNVA) | payer OTHER, SELFPAY | PROVIDERS: Visit Provider Internal Medicine | DX: G89.29 Other chronic pain (principal); M25.561 Pain in right knee; M25.562 Pain in left knee | CPT/HCPCS: 20611; J2795; J3301 ==

== ENCOUNTER 2024-03-11 09:10 | Outpatient (AMB) | payer OTHER, SELFPAY ==
--- NOTE | 2024-03-11 09:13 | MHC.OFFVIS ---
Vital Signs 03/11/24 09:14 Height 5 ft 4 in Weight 149 lb BMI 25.6 BP 107/66 Respiration 14 Pulse 86 Pulse Source Pulse Oximeter Pulse Oximetry (%) 100 Oxygen Delivery Method Room Air Intake Visit Reasons: Left Sprint removal Allergies adhesive Adverse Reaction (Verified 03/11/24 09:18) Rash codeine Adverse Reaction (Verified 03/11/24 09:18) Rash Medication List - Last Reconciled 03/11/24 by Swapna Ortiz LPN carisoprodol (Soma) 250 mg PO BEDTIME gabapentin 300 mg PO BEDTIME indomethacin 25 mg PO BID HPI HPI Left Sprint removal: Details: 73-year-old female who presents today to the office for left saphenous sprint lead removal. She had no relief from the last procedure. She still has right sprint which will be removed in two weeks. She still has pain in her right leg, which is worse while climbing the stairs. The left side is painful even while sitting. She describes her pain as throbbing and aching sensations. She reports lower back pain. She reports ankle pain and has been wearing an ankle brace. She noticed weakness in her ankles. She requested a refill of gabapentin. She used to take gabapentin 300 mg B.I.D. with some relief. She is interested in trying gel injections and physical therapy for knee pain. Past Procedures: 02/15/24: Bilateral knee steroid injections, ultrasound guided: no relief. 02/03/2024: Bilateral knee aspiration and corticosteroid injection, ultrasound-guided: no relief 01/28/24: Peripheral Nerve Stimulation Temporary Lead Placement, Ultrasound-Guided, Saphenous Nerve, Right: No relief yet 01/14/24: Peripheral Nerve Stimulation Temporary Lead Placement, Ultrasound-Guided, Saphenous Nerve, Left: No relief yet [facility], [facility] Surgical History S/P removal of right ovary Hx of removal of cyst Social History Household Members: None Housing: Condominium Alcohol intake: current Alcohol intake frequency: a few times a week Patient Tobacco Use Status: Former Tobacco user Review of Systems Const All systems reviewed & are unremarkable except as noted in HPI and below Physical Exam Vital Signs: Last Vital Signs Pulse 86 03/11/24 09:14 Resp 14 03/11/24 09:14 BP 107/66 03/11/24 09:14 Pulse Ox 100 03/11/24 09:14 Oxygen Delivery Method Room Air 03/11/24 09:14 BMI result Body Mass Index 25.6 General: Appears afebrile. Alert and oriented. Mood and affect appropriate. Follows and participates in conversation appropriately. Respiratory effort is unlabored. Able to transition from sit to stand unassisted. Ambulates with bilaterally normal heel strike and toe off. Left-sided lead removed with tip intact. Results Reviewed Results Reviewed: No imaging is available for review. Assessment & Plan Assessment & Plan (1) Arthritis of both knees: Code(s): M17.0 - Bilateral primary osteoarthritis of knee Category: Medical (2) Chronic pain of both knees: Code(s): M25.561 - Pain in right knee; M25.562 - Pain in left knee; G89.29 - Other chronic pain Category: Medical Plan A referral was provided to physical therapy for bilateral knee pain. A script was also provided to the patient for physical therapy. We will schedule her for a left knee aspiration with dextrose injection to see if we can stop the cycle of reaccumulating synovial fluid around the joint. If the pain continues to persist, we will consider durolane injections under fluoroscopy. Discussed the risks and benefits of the procedure with the patient in detail. All questions were answered. The patient is on board with the plan. Justification for interventional therapy: ? Patient with average pain > 6/10 ? Patient has exhausted conservative therapy . Patient has a good understanding of their pain condition and has appropriate mental and social support Scribed for Dr. Mcclure by Shashank Atkins, medical office supervisor, on 03/11/2024. I, Dr. Mcclure, have personally reviewed and agree with the information entered by the scribe. Orders: Orders PT Evaluation and Treatment Today G89.29 - Other chronic pain, M17.0 - Bilateral primary osteoarthritis of knee, M25.561 - Pain in right knee, M25.562 - Pain in left knee Medications: Changed From gabapentin 300 mg PO BEDTIME 30 caps 0RF To gabapentin 300 mg PO TID 90 caps 5RF Coding Level of Care Code Est Pt Level 4 (01944) Diagnoses Arthritis of both knees M17.0 Chronic pain of both knees M25.561; M25.562; G89.29
[2024-03-11 09:14] VITALS: BP 107/66; PULSE 86; RESP 14; O2SAT 100; BMI 25.6
== END 2024-03-11 09:46 | disposition home or self-care (01) ==
PROVIDERS: Visit Provider Internal Medicine
DX: M17.0 Bilateral primary osteoarthritis of knee (principal); M25.561 Pain in right knee; M25.562 Pain in left knee; G89.29 Other chronic pain
CPT/HCPCS: 99214

== ENCOUNTER → 2024-03-11 09:10 | Outpatient (BNVA) | payer OTHER, SELFPAY | PROVIDERS: Visit Provider Internal Medicine | DX: M17.0 Bilateral primary osteoarthritis of knee (principal) | CPT/HCPCS: 99212 ==

== ENCOUNTER 2024-03-25 08:46 | Outpatient (AMB) | payer OTHER, SELFPAY ==
--- NOTE | 2024-03-25 09:08 | MHC.OFFVIS ---
Vital Signs 03/25/24 09:10 Height 5 ft 4 in BP 133/58 L Blood Pressure Location Lt brachial Position Sitting Respiration 14 Pulse 81 Pulse Source Pulse Oximeter Pulse Oximetry (%) 97 Oxygen Delivery Method Room Air Intake Visit Reasons: right Sprint removal/Left knee aspirate/dextrose Allergies adhesive Adverse Reaction (Verified 03/25/24 09:11) Rash codeine Adverse Reaction (Verified 03/25/24 09:11) Rash Medication List - Last Reconciled 03/25/24 by Swapna Ortiz LPN carisoprodol (Soma) 250 mg PO BEDTIME gabapentin 300 mg PO TID indomethacin 25 mg PO BID HPI HPI right Sprint removal/Left knee aspirate/dextrose: Details: 73-year-old female who presents today to the office for a right sprint removal and left knee aspirate/prolotherapy. Denies any recent cough, cold, infection, fever or other significant changes in medical history since last office visit.? Past Procedures: 02/15/24: Bilateral knee steroid injections, ultrasound guided: no relief. 02/03/2024: Bilateral knee aspiration and corticosteroid injection, ultrasound-guided: no relief 01/28/24: Peripheral Nerve Stimulation Temporary Lead Placement, Ultrasound-Guided, Saphenous Nerve, Right: No relief yet 01/14/24: Peripheral Nerve Stimulation Temporary Lead Placement, Ultrasound-Guided, Saphenous Nerve, Left: No relief yet PFSH Surgical History S/P removal of right ovary Hx of removal of cyst Social History Household Members: None [facility] Alcohol intake: current Alcohol intake frequency: a few times a week Patient Tobacco Use Status: Former Tobacco user Review of Systems Const All systems reviewed & are unremarkable except as noted in HPI and below Physical Exam Vital Signs: Last Vital Signs Pulse 81 03/25/24 09:10 Resp 14 03/25/24 09:10 BP 133/58 L 03/25/24 09:10 Pulse Ox 97 03/25/24 09:10 Oxygen Delivery Method Room Air 03/25/24 09:10 General: Appears afebrile. Alert and oriented. Mood and affect appropriate. Follows and participates in conversation appropriately. Respiratory effort is unlabored. Able to transition from sit to stand unassisted. Ambulates with bilaterally normal heel strike and toe off. Office Procedures Joint Injection/Aspiration Joint Injection/Aspiration Details: Left Knee Aspiration with 25% dextrose Injection, US guided After obtaining written consent, pre-procedure blood pressure and heart rate were stable and recorded in the nursing record. The patient was placed in the supine position and the patient identification and site was confirmed. The target area was widely prepped with chloraprep, allowed to dry. Ultrasound guidance was utilized to visualize the fluid collection at the suprapatellar bursa of the left knee capsule. A 18-gauge needle was advanced under ultrasound guidance to the suprapatellar bursa. 10 mL of clear synovial fluid was aspirated. Following aspiration, 10 ml of 25% dextrose solution was injected in to the suprapatellar bursa. The needles were removed, skin cleansed and a sterile bandage was applied. The patient tolerated the procedure well and no complications were encountered. Following the procedure the patient's vital signs and knee strength were stable. The patient was discharged home in good condition with post-procedural instructions. Time Out: Immediately prior to the procedure, the following was verbally confirmed that there is a signed consent form and that the correct patient, planned procedure, site and side are consistent with documentation and that necessary equipment and/or blood products are available prior to the start of the case. Complications: none EBL: <1 cc Coding Details: An ultrasound image of the injection was taken and stored in the permanent record. 26027 - Large joint Procedure code (CPT) selection complete Results Reviewed Results Reviewed: No imaging is available for review. Assessment & Plan Assessment & Plan (1) Chronic pain of both knees: Code(s): M25.561 - Pain in right knee; M25.562 - Pain in left knee; G89.29 - Other chronic pain Category: Medical (2) Arthritis of both knees: Code(s): M17.0 - Bilateral primary osteoarthritis of knee Category: Medical Plan Patient is status post left knee aspiration with 10ml 25% dextrose solution, US guided. Patient tolerated procedure well and was discharged home in stable condition with discharge instructions.? All questions were answered. The patient will email or text on the patient?s portal in one month to let us know the response from the procedure. I also discussed a trial of PRP injections with her in combination with hyaluronic acid injections for her knee pain in the future. Scribed for Dr. Mcclure by Shashank Atkins, medical management specialist, on 03/25/2024. I, Dr. Mcclure, have personally reviewed and agree with the information entered by the scribe. Coding Level of Care Code Est Pt Level 4 (76638) Diagnoses Chronic pain of both knees M25.561; M25.562; G89.29 Arthritis of both knees M17.0 CPT Codes Coding - 39598 Large joint: 38152 - Large joint ([id number])
[2024-03-25 09:10] VITALS: BP 133/58; PULSE 81; RESP 14; O2SAT 97
== END 2024-03-25 09:30 | disposition home or self-care (01) ==
PROVIDERS: Visit Provider Internal Medicine
DX: M25.561 Pain in right knee (principal); M25.562 Pain in left knee; G89.29 Other chronic pain; M17.0 Bilateral primary osteoarthritis of knee
CPT/HCPCS: 20611; 99024

== ENCOUNTER → 2024-03-25 08:46 | Outpatient (BNVA) | payer OTHER, SELFPAY | PROVIDERS: Visit Provider Internal Medicine | DX: M25.561 Pain in right knee (principal); M25.562 Pain in left knee; M17.0 Bilateral primary osteoarthritis of knee; G89.29 Other chronic pain | CPT/HCPCS: 20611; 99212 ==

== ENCOUNTER 2024-05-25 09:06 | Outpatient (AMB) | payer OTHER, SELFPAY ==
[2024-05-25 09:23] VITALS: BP 118/53; PULSE 73; RESP 15; O2SAT 99
--- NOTE | 2024-05-25 09:23 | A.OFFVIS_ITS ---
Vital Signs 05/25/24 09:23 BP 118/53 L Blood Pressure Location Lt brachial Position Sitting Respiration 15 Pulse 73 Pulse Source Pulse Oximeter Pulse Oximetry (%) 99 Oxygen Delivery Method Room Air Intake Visit Reasons: Manjit gel inj Allergies adhesive Adverse Reaction (Verified 05/25/24 09:31) Rash codeine Adverse Reaction (Verified 05/25/24 09:31) Rash Medication List - Last Reconciled 05/25/24 by Swapna Ortiz LPN carisoprodol (Soma) 250 mg PO BEDTIME gabapentin 300 mg PO TID indomethacin 25 mg PO BID HPI HPI Manjit gel inj: Details: 73-year-old female who presents today to the office for right knee joint aspiration and Durolane injection. Denies any recent cough, cold, infection, fever or other significant changes in medical history since last office visit. She has been having worsening pain in the legs for the past 13 months. She recalls she had sharp and shooting pain in the legs, left worse than right while sitting down a few weeks ago, and has been having pain since then. She stats she has torn miniscus. She states she is barely able to walk and gets support by hanging on to covarrubias and doors to get to the bathroom. She reports improvement in swelling following left knee dextrose injection. She reports her insurance denied PT initially and now she has PT every Mondays and Wednesdays for the month of May. She is inquiring if there is any other medications to help with pain. She has tried Tylenol, Advil, and Aleve which have not been helpful. Past Procedures: 03/25/24: Left knee aspiration and dextrose injection: swelling improvement. 02/15/24: Bilateral knee steroid injections, ultrasound guided: no relief. 02/03/2024: Bilateral knee aspiration and corticosteroid injection, ultrasound- guided: no relief 01/28/24: Peripheral Nerve Stimulation Temporary Lead Placement, Ultrasound- Guided, Saphenous Nerve, Right: No relief yet 01/14/24: Peripheral Nerve Stimulation Temporary Lead Placement, Ultrasound- Guided, Saphenous Nerve, Left: No relief yet PFSH Surgical History S/P removal of right ovary Hx of removal of cyst Social History Household Members: None Housing: Condominium Alcohol intake: current Alcohol intake frequency: a few times a week Patient Tobacco Use Status: Former Tobacco user Physical Exam Vital Signs: Last Vital Signs Pulse 73 05/25/24 09:23 Resp 15 05/25/24 09:23 BP 118/53 L 05/25/24 09:23 Pulse Ox 99 05/25/24 09:23 Oxygen Delivery Method Room Air 05/25/24 09:23 General: Appears afebrile. Alert and oriented. Mood and affect appropriate. Follows and participates in conversation appropriately. Respiratory effort is unlabored. Able to transition from sit to stand unassisted. Ambulates with bilaterally normal heel strike and toe off. Office Procedures Joint Injection/Aspiration Joint Injection/Aspiration Details: Right knee joint aspiration and durolane injection 3 mL under US guidance Primary Site: right knee (25 mL clear synovial fluid aspirated) Prep: site was prepped using sterile technique Injected: in the joint (60 mg Durolane) Approach Used: other (suprapatellar) Procedure: The patient tolerated the procedure well Coding 35163 - Large joint Procedure code (CPT) selection complete Office Meds Durolane 60 mg/3 mL intra-articular syringe Performing Provider: Chester Mcclure MD Performing Location: [facility] [place] [facility] Administered by: Chester Mcclure MD on 05/25/24 09:42 Dose Route Admin Location Dispensed Lot Number Expiration Date NDC [employer] 60 mg intra-articular 3 mL [id number] 07/23/24 [id number] [employer] Assessment & Plan Assessment & Plan (1) Chronic pain of both knees: Code(s): M25.561 - Pain in right knee; M25.562 - Pain in left knee; G89.29 - Other chronic pain Category: Medical (2) Arthritis of both knees: Code(s): M17.0 - Bilateral primary osteoarthritis of knee Category: Medical Plan Patient is status post right knee joint aspiration and Durolane injection. Patient tolerated procedure well and was discharged home in stable condition with discharge instructions. All questions were answered. Follow up next week for left knee joint aspiration and Durolane injection. Scribed for Dr. Mcclure by uriel Hewitt scribe, on 05/25/2024. I, Dr. Mcclure, have personally reviewed and agree with the information entered by the scribe. Orders: Orders AMB Joint Injection/Aspiration Today G89.29 - Other chronic pain, M17.0 - Bilateral primary osteoarthritis of knee, M25.561 - Pain in right knee, M25.562 - Pain in left knee US guide needle placement Today G89.29 - Other chronic pain, M17.0 - Bilateral primary osteoarthritis of knee, M25.561 - Pain in right knee, M25.562 - Pain in left knee Medications: New Durolane (hyaluronate sodium, stabilized) 60 mg (3 mL) intra-articular ONCE 3 mL 0RF NS G89.29 - Other chronic pain, M17.0 - Bilateral primary osteoarthritis of knee, M25.561 - Pain in right knee, M25.562 - Pain in left knee Coding Level of Care Code Procedure Only Diagnoses Chronic pain of both knees M25.561; M25.562; G89.29 Arthritis of both knees M17.0 CPT Codes Coding - 48307 Large joint: 13346 - Large joint ([id number])
== END 2024-05-25 09:50 | disposition home or self-care (01) ==
PROVIDERS: Visit Provider Internal Medicine
DX: M25.561 Pain in right knee (principal); M25.562 Pain in left knee; G89.29 Other chronic pain; M17.0 Bilateral primary osteoarthritis of knee
CPT/HCPCS: 20611

== ENCOUNTER → 2024-05-25 09:06 | Outpatient (BNVA) | payer OTHER, SELFPAY | PROVIDERS: Visit Provider Internal Medicine | DX: M25.561 Pain in right knee (principal); M25.562 Pain in left knee; M17.0 Bilateral primary osteoarthritis of knee; G89.29 Other chronic pain | CPT/HCPCS: 20611; J2003; J7318 ==

== ENCOUNTER 2024-06-01 11:07 | Outpatient (AMB) | payer OTHER, SELFPAY ==
--- NOTE | 2024-06-01 11:26 | A.OFFVIS_ITS ---
Vital Signs 06/01/24 11:27 Height 5 ft 4 in Weight 149 lb BMI 25.6 BP 97/46 L Blood Pressure Location Lt brachial Position Sitting Respiration 15 Pulse 82 Pulse Source Pulse Oximeter Pulse Oximetry (%) 100 Oxygen Delivery Method Room Air Intake Visit Reasons: Left side inj Allergies adhesive Adverse Reaction (Verified 06/01/24 11:29) Rash codeine Adverse Reaction (Verified 06/01/24 11:29) Rash Medication List - Last Reconciled 06/01/24 by Swapna Ortiz LPN carisoprodol (Soma) 250 mg PO BEDTIME gabapentin 300 mg PO TID indomethacin 25 mg PO BID HPI HPI Left side inj: Details: 73-year-old female who presents today to the office for left knee joint aspiration and Durolane injection. Denies any recent cough, cold, infection, fever or other significant changes in medical history since last office visit. Past Procedures: 05/25/24: Right knee joint aspiration and Durolane injection: 03/25/24: Left knee aspiration and dextrose injection: swelling improved 02/15/24: Bilateral knee steroid injections, ultrasound guided: no relief. 02/03/2024: Bilateral knee aspiration and corticosteroid injection, ultrasound- guided: no relief 01/28/24: Peripheral Nerve Stimulation Temporary Lead Placement, Ultrasound- Guided, Saphenous Nerve, Right: No relief yet 01/14/24: Peripheral Nerve Stimulation Temporary Lead Placement, Ultrasound- Guided, Saphenous Nerve, Left: No relief yet PFSH Surgical History S/P removal of right ovary Hx of removal of cyst Social History Household Members: None Housing: Condominium Alcohol intake: current Alcohol intake frequency: a few times a week Patient Tobacco Use Status: Former Tobacco user Physical Exam Vital Signs: Last Vital Signs Pulse 82 06/01/24 11:27 Resp 15 06/01/24 11:27 BP 97/46 L 06/01/24 11:27 Pulse Ox 100 06/01/24 11:27 Oxygen Delivery Method Room Air 06/01/24 11:27 BMI result Body Mass Index 25.6 General: Appears afebrile. Alert and oriented. Mood and affect appropriate. Follows and participates in conversation appropriately. Respiratory effort is unlabored. Able to transition from sit to stand unassisted. Ambulates with bilaterally normal heel strike and toe off. Office Procedures Joint Injection/Aspiration Joint Injection/Aspiration Details: Left knee joint aspiration and durolane injection 3 mL under US guidance Primary Site: Left knee (25 mL clear synovial fluid aspirated) Prep: site was prepped using sterile technique Injected: in the joint (60 mg Durolane) Approach Used: other (suprapatellar) Procedure: The patient tolerated the procedure well Coding Additional procedure code (CPT) needed Assessment & Plan Assessment & Plan (1) Chronic pain of both knees: Code(s): M25.561 - Pain in right knee; M25.562 - Pain in left knee; G89.29 - Other chronic pain Category: Medical (2) Arthritis of both knees: Code(s): M17.0 - Bilateral primary osteoarthritis of knee Category: Medical Plan Patient is status post left knee joint aspiration and Durolane injection. Patient tolerated procedure well and was discharged home in stable condition with discharge instructions. All questions were answered. We will follow-up in two weeks via telephone or in clinic to assess response to therapy. A follow-up appointment was made during today's visit. Scribed for Dr. Mcclure by Marcelina lead medical technologist, on 06/01/2024. I, Dr. Mcclure, have personally reviewed and agree with the information entered by the scribe. Coding Level of Care Code Procedure Only Diagnoses Chronic pain of both knees M25.561; M25.562; G89.29 Arthritis of both knees M17.0
[2024-06-01 11:27] VITALS: BP 97/46; PULSE 82; RESP 15; O2SAT 100; BMI 25.6
== END 2024-06-01 11:52 | disposition home or self-care (01) ==
PROVIDERS: Visit Provider Internal Medicine
DX: M25.562 Pain in left knee (principal); G89.29 Other chronic pain
CPT/HCPCS: 20611

== ENCOUNTER → 2024-06-01 11:07 | Outpatient (BNVA) | payer OTHER, SELFPAY | PROVIDERS: Visit Provider Internal Medicine | DX: M25.562 Pain in left knee (principal); G89.29 Other chronic pain; M17.0 Bilateral primary osteoarthritis of knee | CPT/HCPCS: 20611; J2003 ==